=== PATIENT | female | born 1950 | race Caucasian/White ===

== ENCOUNTER 2016-11-25 19:42 | Inpatient (IN) | payer BC ==
--- NOTE | ~2016-11-25 | CN ---
Consultation Report [facility] [address] [place]. [address] NAME: FIOR SALES : 52 STATUS : ADM IN PAT#: [id number] AGE: 66 ADM/REG DATE : 11/25/16 MR#: [id number] REPORT SERV DATE: 11/28/16 DICTATED BY: JAMES ARCHIBALD DATE: 11/28/16 REPORT STATUS : Draft TRANSCRIBED BY: MODSkylar DATE: 11/28/16 INPATIENT SPINE SURGERY CONSULTATION DATE OF CONSULTATION: 11/28/2016 CHIEF COMPLAINT: Back pain. HISTORY OF PRESENT ILLNESS: The patient is a pleasant, 66-year-old female, who was admitted to the medical service on 11/25/2016. I was consulted for severe back pain. The patient states that she has had approximately one to two weeks of further excruciating mid back pain around her lower ribs radiating around bilaterally to under her breast. She denies any neck or upper back pain. She does have a history of breast cancer with previous mastectomy and reconstruction and had an initial diagnosis in the past and mid 1980s as well. She did undergo chemotherapy as well. Has never had any radiation therapy. Imaging studies on admission did show what appeared to be metastatic tumor involvement from T2-T6 with pathologic fractures at T3, 4, and 5, although she does not have any symptoms related to this area. She has a small possible lesion at the T11 level. No significant spinal cord or nerve root involvement or stenosis identified. She was started on IV steroids and her pain has completely resolved following steroids. She denies any upper or lower extremity pain, paresthesias, weakness, or bowel or bladder changes. REVIEW OF SYSTEMS: She denies any chest pain or shortness of breath, or bowel or bladder changes. PAST MEDICAL HISTORY: Hypertension, depression, and history of breast cancer. ALLERGIES: DENIED. SOCIAL HISTORY: She denies tobacco. FAMILY HISTORY: Noncontributory. HOME MEDICATIONS: Include baclofen, calcium, vitamin D3, vitamin B12, Prozac, Neurontin, Femara, metoprolol, Zyprexa, oxycodone, MiraLAX, vitamin C and E, multivitamin. PHYSICAL EXAMINATION: GENERAL: The patient is healthy appearing. No acute distress. Resting comfortably in bed. Denies pain at this time. PSYCHIATRIC: She is alert and oriented x3. Normal mood and affect. Gait was not tested. SPINE: No tenderness to palpation over the cervical, thoracic, or lumbar regions. NEUROLOGIC: Strength in the upper and lower extremities remains 5/5 strength to the deltoids, biceps, triceps, wrist extensors, finger flexors, interossei, hip flexors, hamstrings, quadriceps, tibialis anterior, EHL, gastrocsoleus, and peroneals. No clonus. Negative Faith's. Consultation Report [address] [place]. [address] NAME: FIOR SALES : 52 STATUS : ADM IN PAT#: [id number] AGE: 66 ADM/REG DATE : 11/25/16 MR#: [id number] REPORT SERV DATE: 11/28/16 DICTATED BY: JAMES ARCHIBALD DATE: 11/28/16 REPORT STATUS : Draft TRANSCRIBED BY: RIA DATE: 11/28/16 IMAGING: I have reviewed the MRI scans of the thoracic and lumbar spine. She does have what appears to be metastatic involvement from T2 down to T6, as well as a small lesion at T11. She does have pathologic fractures at T3 and T4, although these appear to be asymptomatic. There is no evidence of any spinal cord or nerve root involvement. ASSESSMENT: 1. Likely metastatic disease T2-T6 with pathologic fractures T3-T4, small lesion T11. 2. History of recent intractable thoracolumbar junction pain responded completely to steroids. No evidence of nerve compression to suggest radiculopathy at that level, asymptomatic pathologic compression fractures as detailed above. PLAN: I had a long discussion with the patient and her family members. At this point, I do not see any need for surgical intervention. She is currently asymptomatic but even when she was having this severe pain, there was more in line with the T11 area where there is no evidence of any nerve root compression to justify any surgical intervention. She did respond to IV steroids for this. She has been asymptomatic for the upper thoracic lesions. I would recommend Interventional Radiology for biopsy to help confirm the diagnosis, given her history it is most likely breast cancer, but the biopsy would help to confirm that and then I would consider a consultation with Radiation Oncology for potential radiation therapy for the upper thoracic lesions. At this point, with her pain well controlled, no neurologic signs or symptoms, and no evidence of instability, I would not recommend surgical intervention for the upper thoracic region. I would not recommend kyphoplasty due to the lack of ability to visualize safely the pedicles at those levels combined with the fact that she remains asymptomatic at those levels, it would not justify the risk of the kyphoplasty procedure. I would be happy to follow along if things change, but at this point, no surgical recommendations. JCE/MODL James Archibald, DO / [id number] CC: Guicho Brice M.D.
--- NOTE | ~2016-11-25 | HP ---
History And Physical [place] [id number] [facility] [place]. [address] NAME: FIOR SALES : 52 STATUS : ADM IN PAT#: [id number] AGE: 66 ADM/REG DATE : 11/25/16 MR#: [id number] REPORT SERV DATE: 11/25/16 DICTATED BY: VELIA KOEHLER DATE: 11/25/16 REPORT STATUS : Draft TRANSCRIBED BY: MODL DATE: 11/25/16 DATE OF ADMISSION: 11/25/2016 HISTORY OF PRESENT ILLNESS: The patient is a very pleasant 66-year-old female, who presented to [facility] with severe back pain. The patient and her brother, who are at the bedside reported that the patient had breast cancer first diagnosed in [id number]. She has history of bilateral mastectomy and reconstruction surgery. She has also rounds of chemotherapy. The breast disease came back, she was seen by Dr. Engle in the office and she cannot remember what type of chemotherapy she had, but according to the patient, she started to have severe back pain for last week or two and she saw her primary care physician, Dr. Sissy Bach, who did an MRI of the thoracic and lumbar spine on 11/19/2016. Dr. Bach did thoracic and lumbar spine on her on 11/19/2016, and she was found to have multifocal areas of the metastatic disease on the thoracic spine from T2-T5 vertebrae and at the T11 level. She had probable pathological compression fractures in T3-T5 level, 60% loss of height, T4 20% loss of height. There was enhancement of the thecal sac from T3-T5 vertebral body level suggesting tumor involvement, although no thoracic-spinal cord deformity identified. Paravertebral soft-tissue thickening and enhancement in the T3-T5 vertebra, most likely representing tumor extension into the paravertebral soft tissue planes, small nonspecific right pleural effusion. So, after Dr. Bach had these findings, she refer patient to oncologist and oncologist recommended pain medications, oxycodone initially 10 mg four times a day, but the pain was unbearable, so they increased to 15 mg four times a day. The pain was still uncontrolled and the patient was complaining of severe pain, so she was unable to tolerate pain and she came to the [facility] to be admitted, especially in the situation that Dr. Engle was planning also to do scan of her head, abdomen, and chest according to the patient's family. Also, Dr. Sissy Bach, primary care physician, referred the patient outpatient to see orthopedist, Dr. Bach for possible surgery on her spine and they went to the orthopedist, Dr. Bach's office, but after reviewing the patient's MRI, Dr. Bach did not want to do surgery of kyphoplasty immediately. He recommended the patient to see her oncologist first to evaluate the spine metastasis and Dr. Engle to decide what plan of treatment patient will need, if she really needs kyphoplasty or other measures should be taken. The patient is currently in pain, but since she took 15 mg of oxycodone, she falls asleep and this is what family said that she falls asleep with 15 mg of oxycodone and then she wakes up with pain again; after several moments, she falls asleep again. PAST MEDICAL HISTORY: She was able to tell me that her past medical history was known for hypertension and for depression as well as cancer surgery. She denies any history of other problems. She denies any history of diabetes or thyroid disease. No history of strokes. No history of heart attacks. SURGICAL HISTORY: She does not have any major surgeries, except bilateral mastectomy. ALLERGIES: SHE IS NOT ALLERGIC TO ANY MEDICATIONS. SOCIAL HISTORY: Not , lives by herself. She has a brother, who lives in [place]. Nonsmoker, nondrinker, no recreational drug use. History And Physical [address] [address] NAME: FIOR SALES : 52 STATUS : ADM IN [facility]#: [id number] AGE: 66 ADM/REG DATE : 11/25/16 MR#: [id number] REPORT SERV DATE: 11/25/16 DICTATED BY: VELIA KOEHLER DATE: 11/25/16 REPORT STATUS : Draft TRANSCRIBED BY: RIA DATE: 11/25/16 FAMILY HISTORY: Mother has osteoarthritis and there is also family history of hypertension. HOME MEDICATIONS: Baclofen 10 mg q.8 hours p.r.n.; calcium carbonate 500 mg daily; vitamin D3 1000 units daily; vitamin B12 1000 mcg daily; Prozac 20 mg twice a day; Neurontin 300 twice a day; Femara 2.5 mg daily; metoprolol 50 mg b.i.d.; Zyprexa 2.5 daily; oxycodone 15 mg p.o. four times a day; MiraLAX one packet daily; vitamin C, E, Z; multivitamins one capsule twice a day daily. REVIEW OF SYSTEMS: Fourteen-point review of system done and all are negative, except what is stated in the history of present illness. PHYSICAL EXAMINATION: GENERAL: Well-nourished and well-developed female, in pain, but very fast goes to sleep. VITAL SIGNS: Blood pressure initially was 210/125 when she was seen in the emergency room, then came down to 183/109, temperature 97.8, heart rate 84, respiratory rate 18, and oxygen saturation 96% on room air. HEENT: Head is atraumatic, normocephalic. Conjunctivae are clear. Pupils are equal and reactive to light and accommodation. Extraocular muscles are intact. NECK: Supple. Trachea is midline. No supraclavicular or cervical lymphadenopathy. LUNGS: Diminished breath sounds bilaterally, decreased respiratory effort secondary to pain. CARDIOVASCULAR SYSTEM: Regular rate and rhythm. Point of maximal impulse not displaced. ABDOMEN: Soft, nontender, nondistended. Positive normoactive bowel sounds. EXTREMITIES: No clubbing, cyanosis, or edema. SKIN: Normal color and turgor. NEUROLOGICALLY: She is sleepy, but arousable. She can answer questions. She can follow commands. Muscle strength 5/5 bilaterally on upper and lower extremities. LABORATORY RESULTS: Sodium 137, potassium 3.8, chloride 96, carbon dioxide 30, BUN 9, creatinine 0.7, blood sugar 98, total bilirubin 1.6, alkaline phosphatase 166, ALT 24, AST 15, troponin less than 0.02. White count 9.2, hemoglobin 13, hematocrit 38.7, and a platelet count is 345. Chest x-ray done in the emergency room, but official Radiology results are pending. MRI of the thoracic and lumbar spine, which was done on 11/19/2016 are dictated above. ASSESSMENT AND PLAN: This is a 66-year-old female, who presented with severe back pain secondary to metastases to the spine secondary to metastatic breast cancer. Regarding her pain control with oxycodone 15 mg four times daily, she has some relieve of pain and she becomes very sleepy, but then she is having pain again. I explained to the family that we can give her Dilaudid as needed under control of her alertness and I told them that if she is lethargic, we cannot give her high dosages of pain medications because it can affect her breathing, especially in the setting of T3-T4 compression fractures. So, I will write on Dilaudid 0.5-1 mg as needed for severe pain, to hold for sedation, and we will continue her home oxycodone regimen. Regarding her hypertension, I think it is related to her pain. We will put her on 0.1 mg clonidine patch as well as we will give her hydralazine p.r.n. History And Physical [address] [address] NAME: FIOR SALES : 52 STATUS : ADM IN [facility]#: [id number] AGE: 66 ADM/REG DATE : 11/25/16 MR#: [id number] REPORT SERV DATE: 11/25/16 DICTATED BY: VELIA KOEHLER DATE: 11/25/16 REPORT STATUS : Draft TRANSCRIBED BY: TUCKERL DATE: 11/25/16 We will give her reasonable pain and nausea control, and I will consult oncologist, Dr. Engle and I explained to the family that Dr. Engle, the patient's oncologist will come tomorrow and he will do further workup and he will decide on further plan if the patient is a candidate for kyphoplasty depending on the other findings that he is going to check and also, he will decide if it is necessary to contact Dr. Bach. This was all discussed with the patient's brother. Also, it was explained that this is metastatic disease and she may have spread of disease in other places as well. We may give her also steroids, I will discuss about this with the oncologist web solutions architect. /RIA Velia Koehler M.D. / [id number] CC: Guicho Walle Isreal, M.D. Mario Engle MD
--- NOTE | ~2016-11-25 | DS ---
Discharge Summary [facility] [address] [facility] [place]. [address] NAME: FOIR SALES : 52 STATUS : DIS IN PAT#: [id number] AGE: 66 ADM/REG DATE : 11/25/16 MR#: [id number] REPORT SERV DATE: 12/01/16 DICTATED BY: SAI REYNAGA DATE: 11/30/16 REPORT STATUS : Draft TRANSCRIBED BY: MODL DATE: 11/30/16 ADMISSION DATE: 11/25/2016 DISCHARGE DATE: 11/30/2016 FINAL DIAGNOSES: 1. Compression fractures, T3 to T5. 2. Metastatic breast cancer to the bones. 3. Hypertension. 4. Status post hyponatremia. 5. Depression. 6. Status post hypokalemia. CONSULTING PHYSICIAN: Dr. Archibald for Orthopedics and Interventional Radiology. DIAGNOSTIC EXAMS: Chest x-ray showing no acute process. CAT scan of abdomen and pelvis showing pathologic fractures involving T4-T5 and likely T3 vertebral body with underlying lytic lesion. Small 0.7 cm T11 vertebral body intraosseous blastic focus, 0.6 cm pulmonary nodule upper lobe measuring up to 1.2 x 0.9 cm in the left upper lobe, mild bibasilar atelectasis and fibrosis. No evidence of metastatic disease in the abdomen or pelvis. Mild colitis from the cecum to the ascending colon. Mild gaseous distention. HOSPITAL COURSE: Please refer to the H and P done by Dr. Brenner dated on 11/25/2016. Briefly, this is a 66-year-old female, who comes in for back pain. The patient has a diagnosis of breast cancer in 1985; underwent bilateral mastectomy, reconstruction, and chemotherapy. The patient was disease free and was on hormone therapy. However, she started having some severe back pain, and an outpatient MRI was done, which shows pathologic fractures. The patient was supposed to see an outpatient ortho. She saw them once, but the patient had severe pain, got admitted. The patient was then admitted by Dr. Brenner, placed on steroids, and we got consultations from the above physicians. The patient had an orthopedic consultation, and they said that there was no need for surgery. We got Interventional Radiology to do a biopsy, and we do not have the final report, but preliminary is showing that it might be a metastatic cancer. The patient expressed her wishes to go home. We got PT involved and they cleared the patient to go home. She will be staying with her mother without any stairs. So, the patient will be discharged and follow up with Dr. Sissy Bach in one to two weeks, follow up with Mario three days from now. Hopefully, by that time, we will have the biopsy back, and the patient will be on the following medications. Calcium one tablet a day 500 mg, vitamin D 1000 units a day, Decadron 4 mg twice a day, Prozac 20 mg twice a day, gabapentin 300 mg twice a day, Femara 2.5 mg a day, multivitamin once a day, metoprolol 50 mg twice a day, Zyprexa 2.5 mg a day, Protonix 40 mg a day, MiraLAX one packet per day, Roxicodone 15 mg four times a day, baclofen 10 mg q.8 hours p.r.n., Norvasc 5 mg a day, and morphine ER 15 mg one tab p.o. t.i.d. This has been explained to the patient in front of the daughter, and they agreed and understood the plan. TIME SPENT: 35 minutes. Discharge Summary [address] [address] NAME: FIOR SALES : 52 STATUS : DIS IN PAT#: [id number] AGE: 66 ADM/REG DATE : 11/25/16 MR#: [id number] REPORT SERV DATE: 12/01/16 DICTATED BY: SAI REYNAGA DATE: 11/30/16 REPORT STATUS : Draft TRANSCRIBED BY: RIA DATE: 11/30/16 BOLA/RIA Sai Reynaga M.D. / [id number] CC: Guicho Brice M.D.
[~2016-11-25 19:42] MED LIST: ADVIL PO; ALEVE220 MG PO; ARIMIDEX1 PO; ASAB PO; AT25 PO; CALTRA600D PO; DEX2 PO; FISH-EPA1000 MG PO; K500 PO; LOP25 PO; MICARDIS HCT PO; MOMUD PO; NORV25 PO; PERCOCET1 TA2 PO; PROZAC PO; ZYP2 PO
[2016-11-25 20:04] LABS: BASOPHILS 0.3 %; BASOPHILS ABSOLUTE 0.03 10/3/uL (0.0-0.16); EOSINOPHILS 1.4 %; EOSINOPHILS ABSOLUTE 0.13 10/3/uL (0.0-0.53); HEMATOCRIT 38.7 % (36.0-48.0); IMMATURE GRANULOCYTES 0.2 %; IMMATURE GRANULOCYTES ABSOLUTE 0.02 10/3/uL (0.0-0.11); LYMPHOCYTES 18.1 %; LYMPHOCYTES ABSOLUTE 1.67 10/3/uL (0.67-4.30); MEAN CORPUS HGB CONC 33.6 g/dL (32.0-36.0); MEAN CORPUSCULAR HEMOGLOB 29.1 pg (26.0-34.0); MEAN CORPUSCULAR VOLUME 86.6 fL (80-100); MEAN PLATELET VOLUME 9.5 fL (9.2-13.0); MONOCYTES 7.3 %; MONOCYTES ABSOLUTE 0.67 10/3/uL (0.21-1.20); NEUTROPHILS 72.7 %; NEUTROPHILS ABSOLUTE 6.69 10/3/uL (2.02-8.40); PLATELET COUNT 345 10/3/uL (150-400); RBC DISTRIBUTION WIDTH 12.8 % (12.0-16.0); RED CELL COUNT 4.47 10/6/uL (4.0-5.6); WHITE BLOOD CELLS 9.2 10/3/uL (4.5-10.5)
[2016-11-25 20:07] LABS: MANUAL DIFF NO %
[2016-11-25] MEDS ORDERED: LOP50 PO (20:15)
[2016-11-25] MEDS ORDERED: FEMARA PO (20:15)
[2016-11-25] MEDS ORDERED: ZYP2 PO (20:15)
[2016-11-25] MEDS ORDERED: PROZAC PO (20:15)
[2016-11-25] MEDS ORDERED: ROXICODONE15 MG PO (20:18)
[2016-11-25] MEDS ORDERED: NEUR300 PO (20:19)
[2016-11-25] MEDS ORDERED: PRESERVISION A1 EAC1 PO (20:19)
[2016-11-25] MEDS ORDERED: LIOR10 PO (20:19)
[2016-11-25] MEDS ORDERED: VITAMIN D31000 UNIT PO (20:19)
[2016-11-25] MEDS ORDERED: CYANO1000T PO (20:19)
[2016-11-25] MEDS ORDERED: MIRALAX POWDER1 PKT PO (20:20)
[2016-11-25] MEDS ORDERED: TUMSROLL PO (20:20)
[2016-11-25 20:24] LABS: A/G RATIO 0.9 (0.7-1.9); ALBUMIN 3.7 G/DL (3.5-5.0); CALCIUM, SERUM 9.2 MG/DL (8.5-10.4); CHLORIDE, SERUM 96 MMOL/L (96-112); GFR AFRICAN AMERICAN 106 ML/MIN (>=60); GFR NON AFRICAN AMERICAN 92 ML/MIN (>=60); POTASSIUM, SERUM 3.8 MMOL/L (3.5-5.3); SGOT(AST) 15 U/L (5-40); SGPT(ALT) 24 U/L (5-65); SODIUM, SERUM 137 MMOL/L (135-148); TOTAL PROTEIN 7.7 G/DL (6.0-8.5); TROPONIN I <0.02 NG/ML (<0.05)
[2016-11-25 20:26] LABS: ALKALINE PHOSPHATASE 166 U/L (45-117); BUN (BLOOD UREA NITROGEN) 9 MG/DL (6-23); CO2 (CARBON DIOXIDE) 30 MMOL/L (24-34); GLUCOSE, SERUM 98 MG/DL (60-99); TOTAL BILIRUBIN 1.6 MG/DL (0-1.2)
[2016-11-25 22:18] LABS: ASCORBIC ACID (UR NOT ORDER) NEG (NEG); BILIRUBIN, URINE NEGATIVE (NEG); ER URINALYSIS TAT 0 Hrs 07 Mins; KETONE, URINE TRACE MG/DL (NEG); LEUKOCYTE ESTERASE(NOT OR NEG (NEG); NITRITE (URINE) NEG (NEG); WBC (NOT ORDERED) (RFLEX) < 1 (0-5)
[2016-11-26 04:27] LABS: BASOPHILS 0.2 %; BASOPHILS ABSOLUTE 0.02 10/3/uL (0.0-0.16); EOSINOPHILS 0.2 %; EOSINOPHILS ABSOLUTE 0.02 10/3/uL (0.0-0.53); HEMATOCRIT 36.7 % (36.0-48.0); HEMOGLOBIN 12.5 g/dL (12.0-16.0); IMMATURE GRANULOCYTES 0.3 %; IMMATURE GRANULOCYTES ABSOLUTE 0.03 10/3/uL (0.0-0.11); LYMPHOCYTES ABSOLUTE 1.01 10/3/uL (0.67-4.30); MANUAL DIFF NO %; MEAN CORPUS HGB CONC 34.1 g/dL (32.0-36.0); MEAN CORPUSCULAR HEMOGLOB 29.1 pg (26.0-34.0); MEAN CORPUSCULAR VOLUME 85.3 fL (80-100); MEAN PLATELET VOLUME 9.2 fL (9.2-13.0); MONOCYTES 6.5 %; MONOCYTES ABSOLUTE 0.65 10/3/uL (0.21-1.20); NEUTROPHILS 82.8 %; NEUTROPHILS ABSOLUTE 8.32 10/3/uL (2.02-8.40); PLATELET COUNT 339 10/3/uL (150-400); WHITE BLOOD CELLS 10.1 10/3/uL (4.5-10.5)
[2016-11-26 04:46] LABS: BUN (BLOOD UREA NITROGEN) 7 MG/DL (6-23); CHLORIDE, SERUM 99 MMOL/L (96-112); CREATININE 0.43 MG/DL (0.55-1.02); GFR AFRICAN AMERICAN 125 ML/MIN (>=60); GFR NON AFRICAN AMERICAN 107 ML/MIN (>=60); POTASSIUM, SERUM 3.4 MMOL/L (3.5-5.3); SODIUM, SERUM 135 MMOL/L (135-148); TROPONIN I <0.02 NG/ML (<0.05)
[2016-11-26 04:47] LABS: CO2 (CARBON DIOXIDE) 25 MMOL/L (24-34); GLUCOSE, SERUM 122 MG/DL (60-99)
[2016-11-27 06:43] LABS: BASOPHILS 0 %; EOSINOPHILS 0 %; HEMATOCRIT 35.6 % (36.0-48.0); HEMOGLOBIN 12.2 g/dL (12.0-16.0); IMMATURE GRANULOCYTES 0.3 %; IMMATURE GRANULOCYTES ABSOLUTE 0.02 10/3/uL (0.0-0.11); LYMPHOCYTES 11.9 %; LYMPHOCYTES ABSOLUTE 0.94 10/3/uL (0.67-4.30); MANUAL DIFF NO %; MEAN CORPUS HGB CONC 34.3 g/dL (32.0-36.0); MEAN CORPUSCULAR VOLUME 84.8 fL (80-100); MEAN PLATELET VOLUME 9.7 fL (9.2-13.0); MONOCYTES 5.2 %; MONOCYTES ABSOLUTE 0.41 10/3/uL (0.21-1.20); NEUTROPHILS 82.6 %; NEUTROPHILS ABSOLUTE 6.52 10/3/uL (2.02-8.40); PLATELET COUNT 373 10/3/uL (150-400); WHITE BLOOD CELLS 7.9 10/3/uL (4.5-10.5)
[2016-11-27 06:58] LABS: A/G RATIO 0.9 (0.7-1.9); ALBUMIN 2.9 G/DL (3.5-5.0); ALKALINE PHOSPHATASE 141 U/L (45-117); BUN (BLOOD UREA NITROGEN) 11 MG/DL (6-23); CALCIUM, SERUM 8.5 MG/DL (8.5-10.4); CHLORIDE, SERUM 100 MMOL/L (96-112); CO2 (CARBON DIOXIDE) 24 MMOL/L (24-34); CREATININE 0.56 MG/DL (0.55-1.02); GFR AFRICAN AMERICAN 114 ML/MIN (>=60); GFR NON AFRICAN AMERICAN 99 ML/MIN (>=60); GLOBULIN 3.4 G/DL (2.5-4.1); GLUCOSE, SERUM 126 MG/DL (60-99); POTASSIUM, SERUM 3.6 MMOL/L (3.5-5.3); SGOT(AST) 22 U/L (5-40); SGPT(ALT) 30 U/L (5-65); SODIUM, SERUM 134 MMOL/L (135-148); TOTAL BILIRUBIN 0.9 MG/DL (0-1.2); TOTAL PROTEIN 6.3 G/DL (6.0-8.5)
[2016-11-28 06:43] LABS: BUN (BLOOD UREA NITROGEN) 18 MG/DL (6-23); CALCIUM, SERUM 8.1 MG/DL (8.5-10.4); CHLORIDE, SERUM 104 MMOL/L (96-112); CO2 (CARBON DIOXIDE) 24 MMOL/L (24-34); GFR AFRICAN AMERICAN 112 ML/MIN (>=60); GFR NON AFRICAN AMERICAN 96 ML/MIN (>=60); GLUCOSE, SERUM 112 MG/DL (60-99); POTASSIUM, SERUM 4.5 MMOL/L (3.5-5.3); SODIUM, SERUM 136 MMOL/L (135-148)
[2016-11-28 10:24] LABS: BASOPHILS 0 %; EOSINOPHILS 0 %; HEMATOCRIT 33.8 % (36.0-48.0); HEMOGLOBIN 11.5 g/dL (12.0-16.0); IMMATURE GRANULOCYTES 0.3 %; IMMATURE GRANULOCYTES ABSOLUTE 0.02 10/3/uL (0.0-0.11); LYMPHOCYTES 7.3 %; MEAN CORPUSCULAR HEMOGLOB 29.5 pg (26.0-34.0); MEAN CORPUSCULAR VOLUME 86.7 fL (80-100); MEAN PLATELET VOLUME 9.4 fL (9.2-13.0); MONOCYTES 2.6 %; MONOCYTES ABSOLUTE 0.18 10/3/uL (0.21-1.20); NEUTROPHILS 89.8 %; NEUTROPHILS ABSOLUTE 6.12 10/3/uL (2.02-8.40); PLATELET COUNT 314 10/3/uL (150-400); RBC DISTRIBUTION WIDTH 13.3 % (12.0-16.0); WHITE BLOOD CELLS 6.8 10/3/uL (4.5-10.5)
[2016-11-28 10:25] LABS: MANUAL DIFF NO %
[2016-11-28 10:32] LABS: INTERNATIONAL NORMAL RATI 1.3 UNITS (-); PARTIAL THROMBO TIME 28.5 SEC (22.5-37.2); PROTIME (NOT ORD) 16.1 SEC (12.0-14.5)
[2016-11-30 06:34] LABS: BASOPHILS 0 %; EOSINOPHILS 0 %; HEMOGLOBIN 12.9 g/dL (12.0-16.0); IMMATURE GRANULOCYTES 0.4 %; IMMATURE GRANULOCYTES ABSOLUTE 0.04 10/3/uL (0.0-0.11); LYMPHOCYTES 14.5 %; LYMPHOCYTES ABSOLUTE 1.33 10/3/uL (0.67-4.30); MEAN CORPUS HGB CONC 33.1 g/dL (32.0-36.0); MEAN CORPUSCULAR HEMOGLOB 28.8 pg (26.0-34.0); MEAN CORPUSCULAR VOLUME 87.1 fL (80-100); MEAN PLATELET VOLUME 10.1 fL (9.2-13.0); MONOCYTES 8.5 %; MONOCYTES ABSOLUTE 0.78 10/3/uL (0.21-1.20); NEUTROPHILS 76.6 %; NEUTROPHILS ABSOLUTE 7.01 10/3/uL (2.02-8.40); PLATELET COUNT 404 10/3/uL (150-400); RBC DISTRIBUTION WIDTH 13.3 % (12.0-16.0); RED CELL COUNT 4.48 10/6/uL (4.0-5.6); WHITE BLOOD CELLS 9.2 10/3/uL (4.5-10.5)
[2016-11-30 06:40] LABS: MANUAL DIFF NO %
[2016-11-30 06:46] LABS: BUN (BLOOD UREA NITROGEN) 12 MG/DL (6-23); CALCIUM, SERUM 8.4 MG/DL (8.5-10.4); CHLORIDE, SERUM 102 MMOL/L (96-112); CO2 (CARBON DIOXIDE) 26 MMOL/L (24-34); CREATININE 0.71 MG/DL (0.55-1.02); GFR AFRICAN AMERICAN 104 ML/MIN (>=60); GFR NON AFRICAN AMERICAN 90 ML/MIN (>=60); GLUCOSE, SERUM 131 MG/DL (60-99); POTASSIUM, SERUM 4.1 MMOL/L (3.5-5.3); SODIUM, SERUM 136 MMOL/L (135-148)
[2016-11-30] MEDS ORDERED: MSCONT15 PO (09:46)
[2016-11-30] MEDS ORDERED: PROTONIX PO (09:47)
[2016-11-30] MEDS ORDERED: NORV5 PO (09:47)
[2016-11-30] MEDS ORDERED: DEX4 PO (09:47)
== END 2016-11-30 12:34 | disposition home or self-care (01) | DRG 478 ==
LOC: ER 19:42 → 5SO 22:16
PROVIDERS: Hospitalist; Internal Medicine; Internal Medicine Hematology & Oncology; Nurse Practitioner Acute Care; Nurse Practitioner Family; Orthopaedic Surgery
PROC: 0PB43ZX Excision of Thoracic Vertebra, Percutaneous Approach, Diagnostic (ICD-10-PCS; principal; 2016-11-28)
DX: C79.51 Secondary malignant neoplasm of bone (principal); M48.54XA Collapsed vertebra, not elsewhere classified, thoracic region, initial encounter for fracture; E87.1 Hypo-osmolality and hyponatremia; I10 Essential (primary) hypertension; F32.9 Major depressive disorder, single episode, unspecified; E87.6 Hypokalemia; Z85.3 Personal history of malignant neoplasm of breast; Z92.21 Personal history of antineoplastic chemotherapy
CPT/HCPCS: 20225; 71010; 71260; 74177; 77012; 80048; 80053; 81001; 83735; 84484; 85025; 85610; 85730; 88307; 88311; 88342; 88360; 93005; 96374; 97161-GP; 99285; A9270-GY; C1894; J0360; J1170; J1956; J2250; J3010; Q9967